=== PATIENT | male | born 1980 | race Caucasian/White ===

== ENCOUNTER 2017-05-11 08:27 | Emergency (ER) | payer MEDICAID ==
[~2017-05-11] VITALS: Ht 162.6 cm; Wt 82.0 kg
[~2017-05-11 08:27] MED LIST: BACTRIM; TYLENOL
[2017-05-11] MEDS ORDERED: KETOROLAC 60MG/2ML VIAL IM ONE (12:45)
[2017-05-11 12:55] LABS: EOSINOPHILS % 3.4 % (0.0-5.0); HEMATOCRIT. 47.7 % (42.0-52.0); HEMOGLOBIN. 16.2 g/dL (14.0-18.0); LYMPHOCYTES % 38.9 % (20.0-50.0); MEAN CORPUSCULAR HEMOGLOBIN 29.7 pg (28.0-32.0); MEAN CORPUSCULAR VOLUME 87.4 fL (80.0-94.0); MONOCYTES % 8.6 % (2.0-8.0); NEUTROPHILS % 48.1 % (40.0-76.0); RED BLOOD CELL COUNT 5.46 mill/uL (4.7-6.1); RED CELL DISTRIBUTION WIDTH 13.2 % (11.6-14.6)
[2017-05-11 13:12] LABS: CARBON DIOXIDE 27 mEq/L (21-32); CHLORIDE 104 mEq/L (98-107)
[2017-05-11 13:18] VITALS: BP 128/78
[2017-05-11 14:07] LABS: PLATELET 179 x1000/uL (130-400)
== END 2017-05-11 14:37 | disposition home or self-care (01) ==
LOC: ER 08:36
DX: M54.30 Sciatica, unspecified side (principal)
CPT/HCPCS: 36415; 74176; 80053; 83690; 85025; 96372; 99285; J1885

== ENCOUNTER 2017-05-17 09:57 | Emergency (ER) | payer MEDICAID, OTHER ==
[~2017-05-17] VITALS: Ht 165.1 cm; Wt 91.0 kg
[2017-05-17] MEDS ORDERED: KETOROLAC 60MG/2ML VIAL IM ONE (14:45)
[2017-05-17 15:29] VITALS: BP 128/81
== END 2017-05-17 17:15 | disposition home or self-care (01) ==
LOC: ER 11:05
DX: S39.012A Strain of muscle, fascia and tendon of lower back, initial encounter (principal); X58.XXXA Exposure to other specified factors, initial encounter; Y93.89 Activity, other specified; Y92.89 Other specified places as the place of occurrence of the external cause; Y99.8 Other external cause status
CPT/HCPCS: 96372; 99283; J1885

== ENCOUNTER 2022-06-23 19:51 | Emergency (ER) | payer OTHER ==
[~2022-06-23] VITALS: Ht 165.1 cm; Wt 95.7 kg
[2022-06-24] MEDS ORDERED: KETOROLAC 60MG/2ML VIAL IM ONE (04:00)
[2022-06-24] MEDS ORDERED: CYCL5TAB MT (04:14)
[2022-06-24] MEDS ORDERED: NAPR-677 MT (04:14)
[2022-06-24 04:45] VITALS: BP 115/78
== END 2022-06-24 04:15 | disposition home or self-care (01) ==
LOC: ER 19:51
DX: S39.012A Strain of muscle, fascia and tendon of lower back, initial encounter (principal); X50.1XXA Overexertion from prolonged static or awkward postures, initial encounter; Y93.89 Activity, other specified; Y92.89 Other specified places as the place of occurrence of the external cause
CPT/HCPCS: 96372; 99283; J1885

== ENCOUNTER 2023-11-03 09:46 | Emergency (ER) | payer OTHER ==
[~2023-11-03] VITALS: Ht 167.6 cm; Wt 82.0 kg
[~2023-11-03 09:46] MED LIST changes: +CYCL5TAB MT; +NAPR-677 MT
[2023-11-03 09:53] VITALS: O2SAT 99
[2023-11-03] MEDS: CYCLOBENZAPRINE 10MG TABLET PO ONE (11:45)
[2023-11-03] MEDS ORDERED: NAPR-1176 MT (12:10)
[2023-11-03] MEDS ORDERED: CYCL10TA21 MT (12:10)
[2023-11-03] MEDS ORDERED: SULF1TAB48 MT (12:10)
[2023-11-03] MEDS: IBUPROFEN 600MG TABLET PO ONE (12:20)
[2023-11-03 13:10] VITALS: BP 134/87; PULSE 86; RESP 18; TEMP 97.5
== END 2023-11-03 13:13 | disposition home or self-care (01) ==
LOC: ER 09:46
DX: M25.512 Pain in left shoulder (principal)
CPT/HCPCS: 71045; 99283